=== PATIENT | male | born 2000 | race Caucasian/White ===

== ENCOUNTER 2019-10-15 20:30 | Emergency (ER) | payer BC ==
[~2019-10-15] VITALS: Ht 182.9 cm; Wt 72.7 kg
[2019-10-15 20:31] VITALS: Ht 182.9 cm; Wt 72.7 kg
[2019-10-15] MEDS ORDERED: PROPRANOLOL HCL20 MG PO (20:33)
[2019-10-15 21:27] LABS: APPEARANCE CLEAR (CLEAR); BILIRUBIN NEGATIVE (NEGATIVE); COLOR YELLOW (YELLOW); GLUCOSE NEGATIVE (NEGATIVE); KETONE SMALL mg/dL (NEGATIVE); NITRITE NEGATIVE (NEGATIVE); PROTEIN NEGATIVE (NEGATIVE); SPECIFIC GRAVITY 1.025 (1.005-1.020); UROBILINOGEN NORMAL (NORMAL)
[2019-10-15 21:41] LABS: BASOPHILS 0.2 % (0-2); EOSINOPHILS 4.2 % (0-7); HEMATOCRIT 47.9 % (42.0-54.0); IMMATURE GRANULOCYTES 0.3 % (0-5); LYMPHOCYTES 24.7 % (15-50); MCH 29.1 pg (26.0-34.0); MCHC 33.4 g/dL (31.0-37.0); MCV 87.1 fL (80.0-100.0); MEAN PLATELET VOLUME 8.8 fL (7.4-10.4); MONOCYTES 8.6 % (2-11); PLATELET COUNT 269 10x3/uL (130-400); RDW 12.4 % (11.5-14.5); WBC 9.6 10x3/uL (4.8-10.8)
[2019-10-15 21:42] LABS: UDS - AMPHET NEGATIVE QUAL (NEGATIVE); UDS - BARB NEGATIVE QUAL (NEGATIVE); UDS - BENZO NEGATIVE QUAL (NEGATIVE); UDS - COCAINE NEGATIVE QUAL (NEGATIVE); UDS - OPIATE NEGATIVE QUAL (NEGATIVE); UDS - PCP NEGATIVE QUAL (NEGATIVE); UDS - THC POSITIVE QUAL (NEGATIVE)
[2019-10-15 21:45] LABS: CALC OSMOLALITY 278 mosm/kg (275-300); CALCIUM 8.9 mg/dL (8.5-10.1); CARBON DIOXIDE 28.2 mmol/L (21.0-32.0); CHLORIDE - SERUM 100 mmol/L (98-107); CREATININE - SERUM 1.1 mg/dL (0.6-1.3); GLUCOSE 88 mg/dL (74-106); POTASSIUM - SERUM 3.3 mmol/L (3.5-5.1); SODIUM 140 mmol/L (136-145); UREA NITROGEN 15 mg/dL (7-18); eGFR NON AFRICAN AMERICAN > 90 mL/min (90-120)
[2019-10-15 21:53] LABS: ALBUMIN 4.8 g/dL (3.4-5.0); ALKALINE PHOSPHATASE 67 U/L (46-116); ALT (SGPT) 34 U/L (10-68); BILIRUBIN - TOTAL 1.02 mg/dL (0.2-1.3); MAGNESIUM - SERUM 2.1 mg/dL (1.8-2.4); PROTEIN - SERUM 8.2 g/dL (6.4-8.2)
--- NOTE | 2019-10-15 22:08 | NUR ---
DR WILSON NOTIFIED ASND SITTER ORDERED. SITTER AT BEDSIDE. NOTIFIED CHARGE NURSE AND ATTENDING IN REGARDS TO ASSESSMENT FINDINGS. RESOURCES GIVEN TO PT AND SAFETY PLAN INITIATED.
[2019-10-15 23:44] VITALS: BP 132/89
== END 2019-10-16 00:45 ==
LOC: D.ER 20:30
PROVIDERS: Family Medicine
DX: R45.851 Suicidal ideations (principal); R45.850 Homicidal ideations

== ENCOUNTER 2019-11-06 15:49 | Emergency (ER) | payer BC ==
[~2019-11-06] VITALS: Ht 182.9 cm; Wt 68.2 kg
[~2019-11-06 15:49] MED LIST: PROPRANOLOL HCL20 MG PO
[2019-11-06 15:56] VITALS: Ht 182.9 cm; Wt 68.2 kg
[2019-11-06 16:23] LABS: BASOPHILS 0.4 % (0-2); EOSINOPHILS 4.8 % (0-7); HEMATOCRIT 42.8 % (42.0-54.0); HEMOGLOBIN 14.2 g/dL (13.5-17.5); IMMATURE GRANULOCYTES 0.1 % (0-5); LYMPHOCYTES 21.4 % (15-50); MCH 29.2 pg (26.0-34.0); MCHC 33.2 g/dL (31.0-37.0); MCV 88.1 fL (80.0-100.0); MEAN PLATELET VOLUME 8.4 fL (7.4-10.4); MONOCYTES 9.8 % (2-11); NEUTROPHILS 63.5 % (40-80); PLATELET COUNT 205 10x3/uL (130-400); RBC 4.86 10x6/uL (4.20-6.10); RDW 13.1 % (11.5-14.5); WBC 6.9 10x3/uL (4.8-10.8)
[2019-11-06 16:24] LABS: APPEARANCE CLEAR (CLEAR); BILIRUBIN NEGATIVE (NEGATIVE); COLOR YELLOW (YELLOW); GLUCOSE NEGATIVE (NEGATIVE); KETONE NEGATIVE (NEGATIVE); NITRITE NEGATIVE (NEGATIVE); PROTEIN NEGATIVE (NEGATIVE); SPECIFIC GRAVITY 1.025 (1.005-1.020); UROBILINOGEN NORMAL (NORMAL)
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
[2019-11-06 16:37] LABS: UDS - AMPHET NEGATIVE QUAL (NEGATIVE); UDS - BARB NEGATIVE QUAL (NEGATIVE); UDS - BENZO NEGATIVE QUAL (NEGATIVE); UDS - COCAINE NEGATIVE QUAL (NEGATIVE); UDS - OPIATE NEGATIVE QUAL (NEGATIVE); UDS - PCP NEGATIVE QUAL (NEGATIVE); UDS - THC POSITIVE QUAL (NEGATIVE)
[2019-11-06 16:44] LABS: CALC OSMOLALITY 284 mosm/kg (275-300); CALCIUM 9.2 mg/dL (8.5-10.1); CHLORIDE - SERUM 104 mmol/L (98-107); GLUCOSE 111 mg/dL (74-106); POTASSIUM - SERUM 4.1 mmol/L (3.5-5.1); SODIUM 142 mmol/L (136-145); UREA NITROGEN 15 mg/dL (7-18); eGFR NON AFRICAN AMERICAN > 90 mL/min (90-120)
[2019-11-06 16:50] LABS: ALBUMIN 4.2 g/dL (3.4-5.0); ALKALINE PHOSPHATASE 58 U/L (46-116); ALT (SGPT) 48 U/L (10-68); BILIRUBIN - TOTAL 0.36 mg/dL (0.2-1.3); MAGNESIUM - SERUM 1.9 mg/dL (1.8-2.4); PROTEIN - SERUM 7.2 g/dL (6.4-8.2)
[2019-11-06 20:21] VITALS: BP 132/73
== END 2019-11-06 20:22 ==
LOC: D.ER 15:49
PROVIDERS: Family Medicine
DX: R45.4 Irritability and anger (principal); F41.8 Other specified anxiety disorders; Z91.5 Personal history of self-harm; R45.851 Suicidal ideations

== ENCOUNTER 2021-05-17 21:29 | Emergency (ER) | payer BC ==
[~2021-05-17] VITALS: Ht 182.9 cm; Wt 68.2 kg
[2021-05-17 21:41] VITALS: Ht 182.9 cm; Wt 68.2 kg
[2021-05-17] MEDS ORDERED: PREDNISONE50 MG PO (21:52)
[2021-05-17] MEDS ORDERED: EPIPEN 2-P0.3 MG/0.3 IM (21:52)
[2021-05-17] MEDS ORDERED: PEPCID40 MG PO (21:52)
[2021-05-17 23:08] VITALS: BP 106/61
== END 2021-05-17 23:09 | disposition home or self-care (01) ==
LOC: D.ER 21:29
DX: T78.1XXA Other adverse food reactions, not elsewhere classified, initial encounter (principal)